=== PATIENT | female | born 1970 | race Caucasian/White ===

== ENCOUNTER 2016-07-25 17:09 | Outpatient (CLI) | payer OTHER ==
--- NOTE | 2016-07-25 18:23 | DIAGNOSTIC IMAGING REPORT ---
PROCEDURE: US COMPLETE PELVIC W/TRANSVAG INDICATION: Suprapubic pain. History of endometrial ablation. TECHNIQUE: Transabdominal and endovaginal quiñonez scale and color Doppler sonographic images of the female pelvis were obtained. COMPARISON: None. FINDINGS: TRANSABDOMINAL SCANS: Uterus is of normal size (9.4 x 5.1 x 5.7 cm). TRANSVAGINAL SCANS: Endometrial thickness is difficult to assess (post ablation), but there is no evidence of significant endometrial thickening. There are multiple cervical Nabothian cyst. Right ovary is atrophic (1.7 cm) with normal vascularity, and a small 1.2 cm cyst. Left ovary is mildly prominent (4.1 cm) secondary to a 3.0 cm simple cyst, with normal vascularity. There is no evidence of free fluid. IMPRESSION: 1. There is a 3 cm simple left ovarian cyst. 2. Multiple cervical Nabothian cyst (most likely incidental finding). 3. Otherwise negative pelvic ultrasound. 4. Findings discussed with Dr. Rothman.
== END 2016-07-25 23:00 ==
LOC: US SRH 17:09
DX: N83.292 Other ovarian cyst, left side (principal); N88.8 Other specified noninflammatory disorders of cervix uteri

== ENCOUNTER 2016-07-26 11:40 | Outpatient (CLI) | payer OTHER ==
--- NOTE | 2016-07-26 12:49 | DIAGNOSTIC IMAGING REPORT ---
PROCEDURE: CT ABD/PELVIS WITH CONTRAST CLINICAL INDICATION: LOWER ABD PAIN TECHNIQUE: 125 ml of Isovue 300 were injected intravenously and axial images were obtained of the entire abdomen and pelvis with sagittal and coronal reformations. COMPARISON: Pelvic ultrasound 07/25/2016 FINDINGS: ABDOMEN: Mild bibasilar atelectasis. The heart size is normal. Enlarged liver (22 cm) with diffuse steatosis. Enlarged gallbladder with questionable sludge. No biliary distention. Pancreas, spleen, adrenal glands and kidneys are normal. Normal abdominal aorta. Nonspecific bowel gas pattern. 1 cm fat filled umbilical hernia. PELVIS: Mild proximal sigmoid diverticulosis with wall thickening, adjacent inflammatory changes and small amount of fluid consistent with acute diverticulitis. There is no abscess or free air. Appendix not visualized but no evidence of acute appendicitis. 3.5 cm left and 2.5 the right adnexal cysts. Nabothian cysts are present. Uterus and bladder are unremarkable. No suspicious osseous lesions. IMPRESSION: 1. Proximal sigmoid diverticulitis but no abscess or free air. 2. Hepatomegaly and steatosis 3. Enlarged gallbladder with questionable sludge. Consider right upper quadrant ultrasound. 4. Bilateral adnexal cysts 5. Results discussed with ADRIANA Cartagena. All CT scans at this facility use dose modulation, iterative reconstruction, and/or weight-based dosing when appropriate to reduce radiation dose to as low as reasonably achievable.
== END 2016-07-26 23:00 ==
LOC: CT SRH 11:40
DX: K57.32 Diverticulitis of large intestine without perforation or abscess without bleeding (principal); R16.0 Hepatomegaly, not elsewhere classified; K76.0 Fatty (change of) liver, not elsewhere classified; K82.8 Other specified diseases of gallbladder; N83.202 Unspecified ovarian cyst, left side; N83.201 Unspecified ovarian cyst, right side